=== PATIENT | male | born 1970 | race African-American/Black ===

== ENCOUNTER 2016-09-24 13:23 | Emergency (ER) | payer OTHER ==
[~2016-09-24] VITALS: Ht 185.4 cm; Wt 95.3 kg
[~2016-09-24 13:23] MED LIST: ALBUTEROL SULF8.5 GM INH; ASPIRIN81 MG ORAL; AZITHROMYCIN250 MG ORAL; IBUPROFEN600 MG PO; MULTI-VITAMIN1 EACH PO; NORCO 5/3251 TAB ORAL
[2016-09-24] MEDS ORDERED: UNOBMED (14:04)
[2016-09-24] MEDS ORDERED: Ketorolac 60mg Inj IM ONE (14:45)
--- NOTE | 2016-09-24 14:50 | Emergency Room Report ---
History of Present Illness General Chief Complaint: Pain Source: Patient Present Illness HPI 46-year-old male presents emergency department complaining of non-painful swollen lump to the anterior left dias just below the knee x3 days. She reports a history in the past of swelling which resolved on its own. 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 Patient also reports intermittent pain and tingling sensation in the left neck and shoulder area. Patient denies previous injury. Patient reports consistent heavy lifting. Patient reports pain upon stain the left shoulder above his head and that'll elicit intermittent tingling sensation down into the bicep. Denies nausea vomiting fevers chills erythema or increased temperature palpation about the knee or the shoulder patient denies trauma or fall. Denies numbness tingling or loss of sensation or gross motor movements of the extremities, incontinence of bowel or bladder. Denies CP, Palpitations, LOC, AMS, dizziness, Changes in Vision, Sensation, paresthesias, or a sudden severe headache. Allergies: Coded Allergies: CODEINE (Verified Allergy, Unknown, 09/24/16) Patient History Past Medical History: see triage record Past Surgical History: none Pertinent Family History: none Immunizations: UTD Reviewed Nursing Documentation: PMH: Agreed, PSxH: Agreed Nursing Documentation-PMH Past Medical History: No History, Except For Hx Cardiac Problems: Yes Hx Cancer: No Hx Gastrointestinal Problems: No History Of Psychiatric Problem: Yes - Bipolar Hx Neurological Problems: No Review of Systems All Other Systems: negative except mentioned in HPI Physical Exam Vital Signs Date Time Temp Pulse Resp B/P Pulse Ox O2 Delivery O2 Flow Rate FiO2 09/24/16 14:00 97.9 83 16 144/82 99 Room Air Medical Decision Making PA Attestation Dr. michael is my supervising Physician whom patient management has been discussed with. Diagnostic Impression: Primary Impression: Morillo's cyst of knee Qualified Codes: M71.22 - Synovial cyst of popliteal space [Morillo], left knee Additional Impression: Muscle spasm of left shoulder area ER Course 46-year-old male presents emergency department complaining of non-painful swollen lump to the anterior left dias just below the knee x3 days. She reports a history in the past of swelling which resolved on its own. 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 Patient also reports intermittent pain and tingling sensation in the left neck and shoulder area. Patient denies previous injury. Patient reports consistent heavy lifting. Patient reports pain upon stain the left shoulder above his head and that'll elicit intermittent tingling sensation down into the biceps. Denies nausea vomiting fevers chills erythema or increased temperature palpation about the knee or the shoulder patient denies trauma or fall. Ddx considered but are not limited to Fracture, dislocation, contusion, Sprain/ Strain/Spasm, impingement syndrome, rotator cuff injury Vital signs: are WNL, pt. is afebrile H&PE are most consistent with bakers cyst and neck muscle spasm/ mild impingement. left shoulder. ORDERS: - X-ray not required at this time. ED INTERVENTIONS: - 60mg IM Toradol -Rigoberto wrap applied to the left knee/dias by boiler technician. Pt. remains neurovascularly intact. DISCHARGE: At this time pt. is stable for d/c to home. Will provide printed patient care instructions, and any necessary prescriptions. Care plan and follow up instructions have been discussed with the patient prior to discharge. Last Vital Signs Date Time Temp Pulse Resp B/P Pulse Ox O2 Delivery O2 Flow Rate FiO2 09/24/16 14:00 97.9 83 16 144/82 99 Room Air Disposition: HOME, SELF-CARE Condition: Stable Scripts Ibuprofen* (MOTRIN*) 600 Mg Tablet 600 MG ORAL THREE TIMES A DAY, #30 TAB 0 Refills Prov: Farida Mckeon 09/24/16 Cyclobenzaprine Hcl* (FLEXERIL*) 10 Mg Tablet 10 MG ORAL THREE TIMES A DAY for 7 Days, #21 TAB Prov: Farida Mckeon 09/24/16 Referrals: [facility],REFERRING (PCP) Patient Instructions: Morillo Cyst, Muscle Cramps and Spasms, [id number] Additional Instructions: Take medications as directed. Follow up with PCP in 3-5 days Return sooner to ED if new symptoms occur, or current symptoms become worse. - Please note that this Emergency Department Report was dictated using [employer] promotion officer technology software, occasionally this can lead to erroneous entry secondary to interpretation by the dictation equipment. Farida Mckeon Sep 24, 2016 14:50
[2016-09-24] MEDS ORDERED: IBUPROFEN600 MG ORAL (14:57)
[2016-09-24] MEDS ORDERED: CYCLOBENZAPRINE10 MG ORAL (14:57)
[2016-09-24 15:12] VITALS: BP 133/76
== END 2016-09-24 15:15 | disposition home or self-care (01) ==
LOC: EMR 14:15
DX: M71.22 Synovial cyst of popliteal space [Baker], left knee (principal); M62.838 Other muscle spasm; Z88.6 Allergy status to analgesic agent; Z86.59 Personal history of other mental and behavioral disorders
CPT/HCPCS: 29530; 96372; 99284

== ENCOUNTER 2017-03-24 09:19 | Emergency (ER) | payer MEDICAID, OTHER ==
[~2017-03-24] VITALS: Ht 185.4 cm; Wt 95.3 kg
[~2017-03-24 09:19] MED LIST changes: +CYCLOBENZAPRINE10 MG ORAL; +IBUPROFEN600 MG ORAL; +UNOBMED
[2017-03-24] MEDS ORDERED: NKM (09:25)
[2017-03-24 09:29] VITALS: BP 150/77
[2017-03-24 10:10] LABS: BASOPHILS % (AUTO) 0.8 % (0.0-2.0); EOSINOPHILS % (AUTO) 3.5 % (0.0-3.0); LYMPHOCYTES % (AUTO) 35.3 % (20.0-45.0); MEAN CORPUSCULAR HEMOGLOBIN 26.6 PG (27.0-31.0); MEAN CORPUSCULAR VOLUME 86 FL (80-99); MEAN PLATELET VOLUME 6.9 FL (6.5-10.1); MONOCYTES % (AUTO) 8.6 % (1.0-10.0); NEUTROPHILS % (AUTO) 51.8 % (45.0-75.0); PLATELET COUNT 207 K/UL (150-450); RED BLOOD COUNT 4.77 M/UL (4.70-6.10); RED CELL DISTRIBUTION WIDTH 13.1 % (11.6-14.8); WHITE BLOOD COUNT 5.4 K/UL (4.8-10.8)
[2017-03-24 10:24] LABS: ALANINE AMINOTRANSFERASE 21 U/L (3-41); ALBUMIN/GLOBULIN RATIO 1.3 (1.0-2.7); ANION GAP 8 (5-15); ASPARTATE AMINO TRANSFERASE 24 U/L (5-40); CALCIUM 9.1 mg/dL (8.6-10.2); CARBON DIOXIDE 30 mEQ/L (20-30); CHLORIDE 101 mEQ/L (98-107); CREATININE 1.1 mg/dL (0.7-1.2); GLOMERULAR FILTRATION RATE > 60 mL/min (>60); HEMOLYSIS 4; POTASSIUM 4.2 mEQ/L (3.4-4.9); SODIUM 139 mEQ/L (135-145); TOTAL PROTEIN 7.4 g/dL (6.6-8.7); TROPONIN I < 0.30 ng/mL (<=0.30)
[2017-03-24 10:34] LABS: CKMB 4.2 ng/mL (< 6.7)
[2017-03-24] MEDS ORDERED: IBUPROFEN600 MG ORAL (10:53)
[2017-03-24 11:03] VITALS: BP 123/74
--- NOTE | 2017-03-24 11:48 | Emergency Room Report ---
History of Present Illness General Chief Complaint: Dizziness Source: Patient Present Illness HPI 47-year-old male presents ED for evaluation. States that the last 2 weeks he's been feeling dizziness. Also feeling bleeding/cramping sensation in his bilateral arms. Has no symptoms at this time. Denies chest pain at any point. Denies any shortness of breath. Patient denies any cardiac history. Denies smoking or drug use. No other aggravating or relieving factors. Denies any other associated symptoms Allergies: Coded Allergies: CODEINE (Verified Allergy, Unknown, 09/24/16) Patient History Past Medical History: none Past Surgical History: none Pertinent Family History: none Social History: Denies: smoking, alcohol use, drug use Immunizations: UTD Reviewed Nursing Documentation: PMH: Agreed, PSxH: Agreed Nursing Documentation-PMH Past Medical History: No Stated History Hx Cardiac Problems: Yes Hx Cancer: No Hx Gastrointestinal Problems: No Hx Neurological Problems: No Review of Systems All Other Systems: negative except mentioned in HPI Physical Exam Vital Signs Date Time Temp Pulse Resp B/P (MAP) Pulse Ox O2 Delivery O2 Flow Rate FiO2 03/24/17 09:22 98.1 72 16 150/77 97 Room Air Sp02 EP Interpretation: reviewed, normal General Appearance: no apparent distress, alert, GCS 15, non-toxic Head: normocephalic, atraumatic Eyes: bilateral eye normal inspection, bilateral eye PERRL ENT: hearing grossly normal, normal pharynx, no angioedema, normal voice Neck: full range of motion, supple/symm/no masses Respiratory: chest non-tender, lungs clear, normal breath sounds, speaking full sentences Cardiovascular #1: regular rate, rhythm, no edema Cardiovascular #2: 2+ carotid (R), 2+ carotid (L), 2+ radial (R), 2+ radial (L) , 2+ dorsalis pedis (R), 2+ dorsalis pedis (L) Gastrointestinal: normal bowel sounds, non tender, soft, non-distended, no guarding, no rebound Rectal: deferred Genitourinary: normal inspection, no CVA tenderness Musculoskeletal: back normal, gait/station normal, normal range of motion, non- tender Neurologic: alert, oriented x3, responsive, motor strength/tone normal, sensory intact, speech normal Psychiatric: judgement/insight normal, memory normal, mood/affect normal, no suicidal/homicidal ideation Reflexes: 3+ bicep (R), 3+ bicep (L), 3+ tricep (R), 3+ tricep (L), 3+ knee (R) , 3+ knee (L) Skin: normal color, no rash, warm/dry, well hydrated Lymphatic: no adenopathy Medical Decision Making Diagnostic Impression: Primary Impression: Muscle cramps Additional Impression: Dizziness Labs Test 03/24/17 10:00 White Blood Count 5.4 K/UL (4.8-10.8) Red Blood Count 4.77 M/UL (4.70-6.10) Hemoglobin 12.7 G/DL (14.2-18.0) Hematocrit 41.0 % (42.0-52.0) Mean Corpuscular Volume 86 FL (80-99) Mean Corpuscular Hemoglobin 26.6 PG (27.0-31.0) Mean Corpuscular Hemoglobin Concent 31.0 G/DL (32.0-36.0) Red Cell Distribution Width 13.1 % (11.6-14.8) Platelet Count 207 K/UL (150-450) Mean Platelet Volume 6.9 FL (6.5-10.1) Neutrophils (%) (Auto) 51.8 % (45.0-75.0) Lymphocytes (%) (Auto) 35.3 % (20.0-45.0) Monocytes (%) (Auto) 8.6 % (1.0-10.0) Eosinophils (%) (Auto) 3.5 % (0.0-3.0) Basophils (%) (Auto) 0.8 % (0.0-2.0) Sodium Level 139 mEQ/L (135-145) Potassium Level 4.2 mEQ/L (3.4-4.9) Chloride Level 101 mEQ/L (98-107) Carbon Dioxide Level 30 mEQ/L (20-30) Anion Gap 8 (5-15) Blood Urea Nitrogen 13 mg/dL (7-23) Creatinine 1.1 mg/dL (0.7-1.2) Estimat Glomerular Filtration Rate > 60 mL/min (>60) Glucose Level 106 mg/dL (74-106) Calcium Level 9.1 mg/dL (8.6-10.2) Total Bilirubin 0.2 mg/dL (0.0-1.2) Aspartate Amino Transf (AST/SGOT) 24 U/L (5-40) Alanine Aminotransferase (ALT/SGPT) 21 U/L (3-41) Alkaline Phosphatase 95 U/L (40-129) Total Creatine Kinase 441 U/L (38-174) Creatine Kinase MB 4.2 ng/mL (< 6.7) Creatine Kinase MB Relative Index 0.9 Troponin I < 0.30 ng/mL (<=0.30) Total Protein 7.4 g/dL (6.6-8.7) Albumin 4.2 g/dL (3.5-5.2) Globulin 3.2 g/dL Albumin/Globulin Ratio 1.3 (1.0-2.7) EKG Diagnostic Results Rate: normal Rhythm: NSR ST Segments: no acute changes ASA given to the pt in ED: No Rhythm Strip Diag. Results EP Interpretation: yes Rhythm: NSR, no PVC's, no ectopy Last Vital Signs Date Time Temp Pulse Resp B/P (MAP) Pulse Ox O2 Delivery O2 Flow Rate FiO2 03/24/17 11:03 97.9 53 16 123/74 96 Room Air Status: improved Disposition: HOME, SELF-CARE Condition: Stable Scripts Ibuprofen* (MOTRIN*) 600 Mg Tablet 600 MG ORAL Q8H Y for For Pain, #30 TAB 0 Refills Prov: CHINMAY CLEARY M.D. 03/24/17 Departure Forms: Return to Work Return to Work Date: Mar 24, 2017 Work Restrictions: No Heavy Lifting Patient Instructions: Rehydration, Adult CHINMAY CLEARY M.D. Mar 24, 2017 11:48
== END 2017-03-24 11:03 | disposition home or self-care (01) ==
LOC: EMR 09:50
DX: R42 Dizziness and giddiness (principal); R25.2 Cramp and spasm; Z88.6 Allergy status to analgesic agent
CPT/HCPCS: 36415; 80053; 82550; 82553; 84484; 85025; 93005; 96360; 99284

== ENCOUNTER 2018-05-24 12:20 | Emergency (ER) | payer MEDICAID ==
[~2018-05-24] VITALS: Ht 185.4 cm; Wt 113.4 kg
[~2018-05-24 12:20] MED LIST changes: +NKM
[2018-05-24 12:39] VITALS: BP 125/65
--- NOTE | 2018-05-24 12:54 | Emergency Room Report ---
History of Present Illness General Chief Complaint: Lower Back Pain or Injury Source: Patient Present Illness HPI 48-year-old male patient presents ER complaining of low back pain for the past 3 days. Patient reports pain symptoms began while he was helping his mother move furniture. Reports he bent down and when he stood back up he felt stiffness in his lower back, more on the right side. Reports pain is on the right lower back, states that radiates down his leg. Reports it is been using topical patch medications without relief of symptoms. Denies taking oral medications. Denies bowel or bladder incontinence. Denies fever, chest pain, shortness breath. Reports able to ambulate independently without assistance. denies history of back problems in the past or past injury or trauma. Allergies: Coded Allergies: CODEINE (Verified Allergy, Unknown, 09/24/16) Patient History Past Medical History: see triage record Reviewed Nursing Documentation: PMH: Agreed; PSxH: Agreed Nursing Documentation-PMH Past Medical History: No History, Except For Hx Cardiac Problems: Yes Hx Cancer: No Hx Gastrointestinal Problems: No Hx Neurological Problems: No Review of Systems All Other Systems: negative except mentioned in HPI Physical Exam Vital Signs Date Time Temp Pulse Resp B/P (MAP) Pulse Ox O2 Delivery O2 Flow Rate FiO2 05/24/18 12:32 97.7 72 20 125/65 98 Room Air Sp02 EP Interpretation: reviewed, normal General Appearance: well appearing, no apparent distress, alert, GCS 15, non- toxic Head: normocephalic, atraumatic Eyes: bilateral eye normal inspection, bilateral eye PERRL ENT: hearing grossly normal, normal pharynx, no angioedema, normal voice, uvula midline, moist mucus membranes Neck: full range of motion Respiratory: lungs clear, normal breath sounds, no rhonchi, no respiratory distress, no accessory muscle use, no wheezing, speaking full sentences Cardiovascular #1: regular rate, rhythm, no edema Gastrointestinal: non tender, soft, no mass, non-distended, no guarding, no rebound Genitourinary: no CVA tenderness Musculoskeletal: back normal, digits/nails normal, gait/station normal, normal range of motion, other - NVI, spinous process tenderness or bony depression, tender - right lumbosacral region Neurologic: alert, oriented x3, responsive, motor strength/tone normal, SLR negative, sensory intact, cerebellar normal, normal gait, speech normal Psychiatric: mood/affect normal Skin: no rash Lymphatic: no adenopathy Medical Decision Making PA Attestation Dr. Mina is my supervising Physician whom patient management has been discussed with. Diagnostic Impression: Primary Impression: Lumbosacral strain ER Course Pt. presents to the ED c/o low back pain. DDX considered but are not limited to sprain, strain, cauda equine, epidural abscess, AAA, spinal cord compression, kidney stones, muscle spasm. Low suspicion for cauda equina, no bowel or bladder incontinence or retention. No fever, nontoxic appearing, no radiation of pain, low suspicion for epidural mass. No abdominal pain, no blood pressure elevation, nontoxic appearing, low suspicion for AAA. Vital signs: are WNL, pt. is afebrile Ordered X-ray and pain medication. ER COURSE Provided with pain medication. An X-ray of the lumbar spine showed no acute fracture, degenerative changes noted per the preliminary reading. Discussed results with the radiologist. Discussed findings with patient. Advised patient to follow-up with physician outpatient for further imaging and treatment as needed. Likely strain from recent moving causing pain symptoms. Advised patient on rest. Patient instructed on RICE method: rest, ice, compression, elevation. Patient instructed on rest, ice and heat. Contact information for orthopedic urgent care provided, follow-up with urgent care if unable to followup with primary care provider and get referral to forest fire prevention specialist. Followup with primary care provider. Discuss referral to ortho/pain management/ PT as needed. Discuss further imaging with MRI/CT as needed. ER precautions given. Patient reports pain symptoms improved on the ER. Patient able to ambulate independently without difficulty. DISCHARGE: -Rx provided for Tylenol for pain symptoms. -Rx provided for Methocarbamol. SE drowsiness, do not drink, drive, or operate heavy machinery while using. -Rx provided for Lidocaine patch At this time pt. is stable for d/c to home. Patient is resting comfortably, in no acute distress, nontoxic appearing, talking without difficulty. Will provide printed patient care instructions, and any necessary prescriptions. Patient instructed to follow with primary care provider in 3 - 5 days and to request further follow-up as needed. Care plan and follow up instructions have been discussed with the patient prior to discharge. Take medications as directed. Patient questions asked and answered. Patient reports understanding and agreement to treatment plan. ER precautions given, patient instructed to return to ER immediately for any new or worsening of symptoms. - Please note that this Emergency Department Report was dictated using [employer] consultant technology software, occasionally this can lead to erroneous entry secondary to interpretation by the dictation equipment. Other X-Ray Diagnostic Results Other X-Ray Diagnostic Results : X-Ray ordered: lumbar spine # of Views/Limited Vs Complete: 3 View Indication: Pain EP Interpretation: Yes PA Xray: Interpretation reviewed, by supervising MD, and agrees with findings. Interpretation: no dislocation, no soft tissue swelling, no fractures, nonspecific bowel gas, other - degenerative changes Impression: No acute disease PA Scribe Text Yves Leon PA-C Last Vital Signs Date Time Temp Pulse Resp B/P (MAP) Pulse Ox O2 Delivery O2 Flow Rate FiO2 05/24/18 12:39 97.7 20 125/65 98 Room Air 05/24/18 12:32 72 Status: improved Disposition: HOME, SELF-CARE Condition: Stable Scripts Acetaminophen* (TYLENOL EXTRA STRENGTH*) 500 Mg Tablet 500 MG ORAL Q8H PRN for Prn Headache/Temp > 101, #30 TAB 0 Refills Prov: Narayan Leon 05/24/18 Methocarbamol* (ROBAXIN*) 500 Mg Tablet 500 MG PO TID, #21 TAB 0 Refills Prov: Narayan Leon 05/24/18 Lidocaine (Lidocaine) 1 Each Adh..patch 5 % TP DAILY for 7 Days, #7 PATCH Prov: Narayan Leon 05/24/18 Patient Instructions: Lumbosacral Strain, Low Back Sprain With [facility] Additional Instructions: Patient instructed to follow up with primary care provider 3-5 and discuss further referral and imaging at that time. Patient instructed on rest, ice and heat. Do not take muscle relaxant prior to drinking, driving, or operating heavy machinery. Take medications as directed. Patient questions asked and answered. ER precautions given, patient instructed to return to ER immediately for any new or worsening of symptoms. [facility] [address] [facility], [id number] [email or web address] Narayan Leon May 24, 2018 12:54
[2018-05-24] MEDS ORDERED: Ketorolac 30mg Inj IM ONE (13:00)
[2018-05-24] MEDS ORDERED: Methocarbamol 500mg tab ORAL ONE (13:00)
[2018-05-24] MEDS ORDERED: TYLENOL EXTRA500 MG ORAL (13:43)
[2018-05-24] MEDS ORDERED: LIDOCAINE700 M1 TP (13:43)
[2018-05-24] MEDS ORDERED: ROBAXIN500 MG PO (13:43)
[2018-05-24 14:01] VITALS: BP 133/75
--- NOTE | 2018-05-24 14:05 | Diagnostic Imaging Report ---
Indication: Back pain Comparison: None Findings: 3 views of the lumbar spine were obtained. Multilevel narrowing of intervertebral disks and associated endplate and facet osteophytes are present. No malalignment identified. No acute fracture definitely seen. Impression: Moderate spondylosis. No acute injury appreciated.
== END 2018-05-24 14:01 | disposition home or self-care (01) ==
LOC: EMR 13:31
DX: S39.012A Strain of muscle, fascia and tendon of lower back, initial encounter (principal); X50.0XXA Overexertion from strenuous movement or load, initial encounter; Y93.89 Activity, other specified
CPT/HCPCS: 72020; 99283; J1885

== ENCOUNTER 2020-06-30 17:27 | Emergency (ER) | payer MEDICAID ==
[~2020-06-30] VITALS: Ht 180.3 cm; Wt 113.4 kg
[~2020-06-30 17:27] MED LIST changes: +LIDOCAINE700 M1 TP; +ROBAXIN500 MG PO; +TYLENOL EXTRA500 MG ORAL
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
--- NOTE | 2020-06-30 17:40 | NUR ---
ED Nurse Note: walked in to ed c/o intermittent abd pain onset 2 wks ago accompanied by nausea. denies diarrhea or vomitting. does not present with fever. 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 xr at bedside.
[2020-06-30] MEDS ORDERED: Omnipaque-300 100ml vial INJ PRN (17:45)
--- NOTE | 2020-06-30 17:45 | NUR ---
ED Nurse Note: received patient consent for cta. pt denies allergies to dye or shellfish.
[2020-06-30 17:54] VITALS: BP 133/84
[2020-06-30 17:56] LABS: APPEARANCE,URINE CLEAR; BASOPHILS % (AUTO) 1.3 % (0.0-2.0); BILIRUBIN, URINE NEGATIVE (NEGATIVE); COLOR,URINE PALE YELLOW; EOSINOPHILS % (AUTO) 1.9 % (0.0-3.0); GLUCOSE, URINE (UA) NEGATIVE (NEGATIVE); HEMATOCRIT 38.7 % (42.0-52.0); KETONES,URINE NEGATIVE (NEGATIVE); LEUKOCYTE ESTERASE ,URINE 1+ (NEGATIVE); MEAN CORPUSCULAR VOLUME 82 FL (80-99); MONOCYTES % (AUTO) 8.7 % (1.0-10.0); NEUTROPHILS % (AUTO) 45.1 % (45.0-75.0); NITRITE,URINE NEGATIVE (NEGATIVE); PH,URINE 6 (4.5-8.0); PLATELET COUNT 233 K/UL (150-450); PROTEIN,URINE NEGATIVE (NEGATIVE); RED CELL DISTRIBUTION WIDTH 15.3 % (11.6-14.8); UROBILINOGEN,URINE NORMAL MG/DL (0.0-1.0)
--- NOTE | 2020-06-30 18:11 | Diagnostic Imaging Report ---
EXAM: XR Chest, 1 View CLINICAL HISTORY: PAIN TECHNIQUE: Frontal view of the chest. COMPARISON: Chest x-ray 08/21/2013. FINDINGS: Lungs: No consolidation. Pleural space: Chronic blunting/scarring of the right costophrenic angle. No pneumothorax. Heart: No cardiomegaly. Mediastinum: Unremarkable. Bones/joints: No acute osseous abnormality. IMPRESSION: No acute disease.
[2020-06-30 18:12] LABS: ALANINE AMINOTRANSFERASE 32 U/L (12-78); ALBUMIN 3.7 G/DL (3.4-5.0); ALBUMIN/GLOBULIN RATIO 0.9 (1.0-2.7); ALKALINE PHOSPHATASE 113 U/L (46-116); ANION GAP 8 mmol/L (5-15); ASPARTATE AMINO TRANSFERASE 28 U/L (15-37); BILIRUBIN,TOTAL 0.3 MG/DL (0.2-1.0); BLOOD UREA NITROGEN 10 mg/dL (7-18); CALCIUM 8.6 MG/DL (8.5-10.1); CARBON DIOXIDE 29 MMOL/L (21-32); CHLORIDE 106 MMOL/L (98-107); CREATININE 1.1 MG/DL (0.55-1.30); POTASSIUM 3.6 MMOL/L (3.5-5.1); SODIUM 142 MMOL/L (136-145)
[2020-06-30] MEDS ORDERED: FAMOTIDINE20 MG ORAL (18:38)
--- NOTE | 2020-06-30 18:45 | NUR ---
ED Nurse Note: pt back from ct
--- NOTE | 2020-06-30 19:22 | NUR ---
HAND-OFF: Report given to Adryan RN.
--- NOTE | 2020-06-30 19:23 | NUR ---
ED Nurse Note: Report received from BRYAN LOMBARDO
--- NOTE | 2020-06-30 19:53 | Diagnostic Imaging Report ---
EXAM: CT Abdomen and Pelvis With Intravenous Contrast CLINICAL HISTORY: PAIN TECHNIQUE: Axial computed tomography images of the abdomen and pelvis with intravenous contrast. CTDI is 10.8 mGy and DLP is 621.7 mGy-cm. One or more of the following dose reduction techniques were used: automated exposure control, adjustment of the mA and/or kV according to patient size, use of iterative reconstruction technique. COMPARISON: No relevant prior studies available. FINDINGS: ABDOMEN: Liver: Unremarkable. No mass. Gallbladder and bile ducts: Unremarkable. No calcified stones. No ductal dilation. Pancreas: Unremarkable. No mass. No ductal dilation. Spleen: Unremarkable. No splenomegaly. Adrenals: Unremarkable. No mass. Kidneys and ureters: Unremarkable. No solid mass. No hydronephrosis. Stomach and bowel: Unremarkable. No obstruction. No mucosal thickening. PELVIS: Appendix: No findings to suggest acute appendicitis. Bladder: Unremarkable. No mass. Reproductive: Unremarkable as visualized. ABDOMEN and PELVIS: Intraperitoneal space: Small amount of free fluid in the pelvis. No free air. Bones/joints: Degenerative changes in the spine. Chronic anterior wedging at T11, T12 and L1. Old fractures of the pubic rami. Degenerative changes in the left hip. There is some heterotopic ossification along the left pubis. And left ilium. No dislocation. Soft tissues: Small umbilical hernia containing fat. Vasculature: Unremarkable. No abdominal aortic aneurysm. Lymph nodes: Unremarkable. No enlarged lymph nodes. IMPRESSION: 1. Small amount of free fluid in the pelvis. No bowel obstruction or inflammatory changes. 2. Small umbilical hernia containing fat.
[2020-06-30 20:41] VITALS: BP 133/84
--- NOTE | 2020-06-30 20:41 | NUR ---
ER DISCHARGE NOTE: Patient is cleared to be discharged per ERMD, pt is aox4, on room air, with stable vital signs. pt was given dc and prescription instructions, pt was able to verbalize understanding, pt id band and iv site removed without complications. pt is able to ambulate with steady gait. pt took all belongings.
== END 2020-06-30 20:42 | disposition home or self-care (01) ==
LOC: EMR 17:40
DX: R10.33 Periumbilical pain (principal); K27.9 Peptic ulcer, site unspecified, unspecified as acute or chronic, without hemorrhage or perforation; K42.9 Umbilical hernia without obstruction or gangrene; M19.90 Unspecified osteoarthritis, unspecified site; F12.90 Cannabis use, unspecified, uncomplicated; Z88.5 Allergy status to narcotic agent; Z87.81 Personal history of (healed) traumatic fracture
CPT/HCPCS: 36415; 71045; 74177; 80053; 81003; 83690; 84484; 85025; 93005; 96361; 96374; J2405; J7030; Q9965; Z7502; 99284